=== PATIENT | male | born 2000 | race Asian ===

== ENCOUNTER 2021-08-29 09:27 | Emergency (ER) | payer MEDICAID, SELFPAY ==
[~2021-08-29] VITALS: Ht 172.7 cm; Wt 79.8 kg
[2021-08-29 09:27] VITALS: BP_SYST 133
--- NOTE | 2021-08-29 09:27 | NUR ---
BROUGHT BACK TO BED #6 AND TRIAGED. REPORT GIVEN TO WILLIAMS
--- NOTE | 2021-08-29 09:40 | NUR ---
Pt came to ED due to c/o abdominal pain that started last night. Rates pain 8/10 and does not radiate. Pain is constant. NKA. No medical conditions pt is aware of. Skin intact. A&Ox4. No chest pain and no sob. Denies n/v. Pt does smoke daily and drinks once in a while. Pt stated he did drink last night. Ambulatory with steady gait. Bed in lowest position. Placed on telemetry monitor. Call light within reach.
--- NOTE | 2021-08-29 09:45 | NUR ---
ER physician at bedside.
[2021-08-29] MEDS ORDERED: MAG HYDROX/AL HYDROX/SIMETH 30 ML, DICYCLOMINE HCL 20 MG, LIDOCAINE VISCOUS 2% 15ML (PO... PO ONE ×3 (10:00)
[2021-08-29] MEDS ORDERED: KETOROLAC TROMETHAMINE 60 MG/2 ML VIAL IM ONE (10:00)
--- NOTE | 2021-08-29 10:04 | NUR ---
Medications given as prescribed. vtc technician at bedside to draw blood. Pt is A&Ox4. VSS.
[2021-08-29 10:22] LABS: BASOPHILS % (AUTO) 0.3 % (0.0-2.0); CREATININE 0.91 mg/dL (0.55-1.30); EOSINOPHILS % (AUTO) 0.3 % (0.0-4.0); HEMOGLOBIN 15.7 g/dL (14.0-18.0); LYMPHOCYTES # (AUTO) 1.4 K/uL (1.0-5.5); LYMPHOCYTES % (AUTO) 13.1 % (20.5-51.5); MEAN CORPUSCULAR HEMOGLOBIN 30 pg (27-31); MEAN CORPUSCULAR HGB CONC 34 % (32-36); MEAN CORPUSCULAR VOLUME 88 fL (79.0-98.0); MONOCYTES # (AUTO) 0.5 K/uL (0.0-1.0); MONOCYTES % (AUTO) 4.9 % (1.7-9.3); NEUTROPHILS % (AUTO) 81.4 % (40.0-70.0); PLATELET COUNT (AUTO) 287 K/uL (130-430); POTASSIUM 4.9 mmol/L (3.5-5.1); RED BLOOD CELL COUNT(AUTO) 5.22 MIL/uL (4.2-6.2); RED CELL DISTRIBUTION WIDTH 13.8 % (9.0-15.0)
[2021-08-29 10:28] LABS: ALBUMIN 4.3 g/dL (3.4-4.8); TOTAL BILIRUBIN 0.2 mg/dL (0.0-1.0)
[2021-08-29] MEDS ORDERED: SUCR1ORA4 PO (10:51)
[2021-08-29] MEDS ORDERED: TRAM50TA PO (10:51)
[2021-08-29 11:17] VITALS: BP_SYST 147
--- NOTE | 2021-08-29 11:18 | NUR ---
Patient given written and verbal discharge instructions and verbalizes understanding. ER MD discussed with patient the results and treatment provided. Patient in stable condition. ID arm band removed Rx of SUCRALFATE, TRAMADOL given. Patient educated on pain management and to follow up with PMD. Pain Scale 0/10. Opportunity for questions provided and answered. Medication side effect fact sheet provided.
== END 2021-08-29 11:17 | disposition home or self-care (01) ==
LOC: SED 09:27
DX: R10.13 Epigastric pain (principal)
CPT/HCPCS: 36415; 80053; 83690; 85025; 96372; 99284; J1885; J2001; 99283

== ENCOUNTER 2021-08-31 05:02 | Emergency (ER) | payer MEDICAID, SELFPAY ==
[~2021-08-31] VITALS: Ht 172.7 cm; Wt 79.8 kg
[~2021-08-31 05:02] MED LIST: SUCR1ORA4 PO; TRAM50TA PO
[2021-08-31 05:40] VITALS: BP_SYST 148
--- NOTE | 2021-08-31 05:40 | NUR ---
Note undone in EDM - 08/31/21 at 0723 by [email or web address] Patient came in to thr ER with companis of left epigastric pain since 08/29. Returning patient, seen here in this ER 08/29, + normal blood work and negative ultrasound. Pt was discharged with Tramadol without improvement in pain. Pt denies fever, chills, nausea or vomiting. Pt denies chest pain or SOB. Pt describes sharp constant 9/10 epigastric pain without radiation. Pt denies diarrhea, melena or hematochezia. Pt denies chest pain or SOB. Pt denies dysuria. Patient breathing easy, not in any distress. Patient ambulates with steady gait.
--- NOTE | 2021-08-31 05:40 | NUR ---
Patient came in to the ER with complaints of left epigastric pain since 08/29. Returning patient, seen here in this ER 08/29, + normal blood work and negative ultrasound. Pt was discharged with Tramadol without improvement in pain. Pt denies fever, chills, nausea or vomiting. Pt denies chest pain or SOB. Pt describes sharp constant 9/10 epigastric pain without radiation. Pt denies diarrhea, melena or hematochezia. Pt denies chest pain or SOB. Pt denies dysuria. Patient breathing easy, not in any distress. Patient ambulates with steady gait.
--- NOTE | 2021-08-31 05:43 | NUR ---
Patient ambulatory to bed 3 for evaluation and treatment
--- NOTE | 2021-08-31 05:44 | NUR ---
ER at bedside examining patient.
[2021-08-31] MEDS ORDERED: MAG HYDROX/AL HYDROX/SIMETH 30 ML, DICYCLOMINE HCL 20 MG, LIDOCAINE VISCOUS 2% 15ML (PO... PO ONE ×3 (05:45)
[2021-08-31] MEDS ORDERED: OMEP40CA20 PO (06:03)
[2021-08-31] MEDS ORDERED: HYDR-3917 PO (06:03)
[2021-08-31] MEDS ORDERED: MAG-AL HYDROX/SIMETH 30 ML UDC ONE (06:06)
[2021-08-31] MEDS ORDERED: DICYCLOMINE HCL 10 MG/5 ML SOLUTION ONE (06:06)
[2021-08-31] MEDS ORDERED: LIDOCAINE VISCOUS 2%, 15 ML UDC ONE (06:06)
--- NOTE | 2021-08-31 06:10 | NUR ---
Patient given written and verbal discharge instructions and verbalizes understanding. ER MD discussed with patient the results and treatment provided. Patient in stable condition. ID arm band removed. Rx of given. Patient educated on pain management and to follow up with PMD. Pain Scale . Opportunity for questions provided and answered. Medication side effect fact sheet provided.
[2021-08-31 06:37] VITALS: BP_SYST 148
[2021-09-01] MEDS ORDERED: METO-290 PO (11:20)
[2021-09-01] MEDS ORDERED: OMEP20CA15 PO (11:22)
== END 2021-08-31 06:10 | disposition home or self-care (01) ==
LOC: SED 05:02
DX: R10.13 Epigastric pain (principal); Z79.899 Other long term (current) drug therapy
CPT/HCPCS: 99283; J2001

== ENCOUNTER 2021-09-01 09:30 | Emergency (ER) | payer MEDICAID, SELFPAY ==
[~2021-09-01] VITALS: Ht 172.7 cm; Wt 79.4 kg
[~2021-09-01 09:30] MED LIST changes: +HYDR-3917 PO; +OMEP40CA20 PO
[2021-09-01 09:32] VITALS: BP_SYST 136
--- NOTE | 2021-09-01 09:42 | NUR ---
ER DR. MICHAEL EXAMINING PT
--- NOTE | 2021-09-01 09:42 | NUR ---
DR MICHAEL OUT TO TRIAGE FOR EVALUATION
[2021-09-01] MEDS ORDERED: HALOPERIDOL LACTATE 5 MG/ML VIAL IM ONE (09:45)
--- NOTE | 2021-09-01 09:51 | NUR ---
Placed in room 7 . Placed on clinic supervisor, blood pressure machine and pulse oximeter. To gown for exam. Side rails up. Report given to DG SWENSON.
--- NOTE | 2021-09-01 09:54 | NUR ---
21 years old male walking to er c/o abdominal pain, nausea vomiting.
[2021-09-01 10:16] LABS: BASOPHILS % (AUTO) 0.2 % (0.0-2.0); EOSINOPHILS % (AUTO) 0.1 % (0.0-4.0); HEMATOCRIT 47.7 % (36-54); HEMOGLOBIN 16.1 g/dL (14.0-18.0); LYMPHOCYTES # (AUTO) 1.5 K/uL (1.0-5.5); LYMPHOCYTES % (AUTO) 20.8 % (20.5-51.5); MEAN CORPUSCULAR HEMOGLOBIN 30 pg (27-31); MEAN CORPUSCULAR HGB CONC 34 % (32-36); MEAN CORPUSCULAR VOLUME 87 fL (79.0-98.0); MONOCYTES # (AUTO) 0.5 K/uL (0.0-1.0); MONOCYTES % (AUTO) 6.6 % (1.7-9.3); NEUTROPHILS # (AUTO) 5.3 K/uL (1.8-7.7); NEUTROPHILS % (AUTO) 72.3 % (40.0-70.0); PLATELET COUNT (AUTO) 312 K/uL (130-430); RED BLOOD CELL COUNT(AUTO) 5.48 MIL/uL (4.2-6.2); WHITE BLOOD COUNT (AUTO) 7.3 K/uL (4.5-11.0)
[2021-09-01 10:26] LABS: ANION GAP 9 (5-15); CALCIUM 9.3 mg/dL (8.4-11.0); CHLORIDE 101 mmol/L (98-107); CREATININE 0.99 mg/dL (0.55-1.30); GLUCOSE 101 mg/dL (70-99); POTASSIUM 4.8 mmol/L (3.5-5.1); SODIUM SERUM 140 mmol/L (136-145); UREA NITROGEN, BLOOD 15 mg/dL (8-21)
[2021-09-01 10:36] LABS: GFR AFRICAN AMERICAN 124 mL/min (>90)
[2021-09-01 10:43] LABS: ALANINE AMINOTRANSFERASE 40 U/L (12-78); ALBUMIN 4.5 g/dL (3.4-4.8); AMYLASE 77 U/L (0-100); ASPARTATE AMINOTRANSFERASE 23 U/L (10-37); LIPASE 46 U/L (73-393); TOTAL BILIRUBIN 0.6 mg/dL (0.0-1.0)
[2021-09-01] MEDS ORDERED: METO-290 PO (11:20)
[2021-09-01 11:22] LABS: BILIRUBIN,URINE NEGATIVE (NEGATIVE); BLOOD, URINE NEGATIVE (NEGATIVE); CLARITY/URINE CLEAR (CLEAR); COLOR,URINE YELLOW (YELLOW); GLUCOSE,URINE NEGATIVE (NEGATIVE); KETONES,URINE NEGATIVE (NEGATIVE); LEUKOCYTE ESTERASE ,URINE NEGATIVE (NEGATIVE); NITRITE, URINE NEGATIVE (NEGATIVE); PH,URINE 6.5 (5.0-8.0); PROTEIN URINE NEGATIVE (NEGATIVE); UROBILINOGEN,URINE 0.2 (0.2-1.0)
[2021-09-01] MEDS ORDERED: OMEP20CA15 PO (11:22)
[2021-09-01 11:27] LABS: C-REACTIVE PROTEIN QUANT < 0.2 mg/dL (0-0.5)
[2021-09-01] MEDS ORDERED: MAG HYDROX/AL HYDROX/SIMETH 30 ML, DICYCLOMINE HCL 20 MG, LIDOCAINE VISCOUS 2% 15ML (PO... PO ONE ×3 (11:30)
[2021-09-01 11:42] VITALS: BP_SYST 118
== END 2021-09-01 11:42 | disposition home or self-care (01) ==
LOC: SED 09:30
DX: K31.84 Gastroparesis (principal); Z79.899 Other long term (current) drug therapy
CPT/HCPCS: 36415; 74176; 76376; 80053; 81003; 82150; 83605; 83690; 85025; 86140; 96372; 99284; J1630; J2001

== ENCOUNTER 2023-09-25 12:44 | Emergency (ER) | payer MEDICAID ==
[~2023-09-25] VITALS: Ht 172.7 cm; Wt 83.5 kg
[~2023-09-25 12:44] MED LIST changes: +METO-290 PO; +OMEP20CA15 PO
[2023-09-25 13:05] VITALS: BP_SYST 126; PULSE 74; O2SAT 97
[2023-09-25] MEDS ORDERED: ONDA-8 TL (13:29)
[2023-09-25 17:23] VITALS: BP_SYST 132; PULSE 96; O2SAT 97
== END 2023-09-25 13:45 | disposition home or self-care (01) ==
LOC: SED 12:44
DX: R19.7 Diarrhea, unspecified (principal); R10.13 Epigastric pain; Z79.899 Other long term (current) drug therapy
CPT/HCPCS: 99283